=== PATIENT | female | born 1975 | race Caucasian/White ===

== ENCOUNTER 2022-05-17 13:04 | Inpatient (IN) | payer OTHER ==
[~2022-05-17] VITALS: Ht 167.6 cm; Wt 92.2 kg
[~2022-05-17 13:04] MED LIST: COLACE100 MG PO; IMITREX SQ6 MG/0.5 M PO; LINZESS290 MCG PO; MELATONIN10 MG PO; NORCO 5-325 TA1 EACH PO; PROBIOTIC1 EAC1 PO; WELLBUTRIN XL300 MG PO
[2022-05-17 14:05] LABS: BASOPHIL 0.5 % (0-2); EOSINOPHIL 0.7 % (0-5); HCT 41.5 % (37.0-47.0); HGB 13.6 g/dl (12.5-16.0); LYMPHOCYTE 15.2 % (15-48); MCH 29.8 pg (25.0-31.0); MCHC 32.8 g/dL (32.0-36.0); MONOCYTE 7.4 % (0-12); MPV 11.7 fL (6.0-9.5); NEUTROPHIL 75.9 % (41-80); NRBC 0; PLT 183 K/uL (150-400); RBC 4.56 M/uL (4.20-5.40); RDW 14.2 % (11.5-14.0); WBC 8.8 K/uL (4.0-10.5)
[2022-05-17 14:17] LABS: BILIRUBIN 1+ mg/dL (NEGATIVE); BLOOD NEGATIVE Ery/uL (NEGATIVE); CLARITY CLEAR (CLEAR); COLOR YELLOW (YELLOW); GLUCOSE (U) NORMAL (NORMAL); LEUKOCYTES TRACE Leu/uL (NEGATIVE); NITRITE NEGATIVE (NEGATIVE); PROTEIN TRACE (LOW) mg/dL (NEGATIVE); UROBILINOGEN >=8.0 mg/dL (0.2-1.0); pH 7.5 (5.0-9.0)
[2022-05-17 14:29] LABS: BACTERIA 1+; SQUAMOUS EPITHELIAL CELLS 20-50; URINARY RBC RARE
[2022-05-17 14:42] LABS: ALBUMIN 3.1 g/dL (3.4-5.0); BUN/CREAT RATIO (CALC) 14.5 RATIO; CREATININE 0.62 mg/dL (0.51-0.95); GLOBULIN (CALCULATION) 3.5 g/dL; MAGNESIUM 1.9 mg/dL (1.8-2.4); POTASSIUM 3.9 mmol/L (3.5-5.1); TOTAL PROTEIN 6.6 g/dL (6.4-8.2)
[2022-05-17 14:56] LABS: LACTIC ACID 0.7 mmol/L (0.4-1.9)
[2022-05-17 19:22] LABS: HCG (URINE) SCREEN NEGATIVE (NEGATIVE)
[2022-05-18 10:12] LABS: BASOPHIL 0.3 % (0-2); EOSINOPHIL 0.7 % (0-5); HCT 42.5 % (37.0-47.0); HGB 13.5 g/dl (12.5-16.0); LYMPHOCYTE 15.6 % (15-48); MCH 29.4 pg (25.0-31.0); MCHC 31.8 g/dL (32.0-36.0); MCV 92.6 fL (78.0-100.0); MONOCYTE 8.7 % (0-12); MPV 11.3 fL (6.0-9.5); NEUTROPHIL 74.4 % (41-80); NRBC 0; PLT 196 K/uL (150-400); RBC 4.59 M/uL (4.20-5.40); WBC 9.2 K/uL (4.0-10.5)
[2022-05-18 10:30] LABS: BUN/CREAT RATIO (CALC) 7.6 RATIO; CREATININE 0.66 mg/dL (0.51-0.95); POTASSIUM 4.1 mmol/L (3.5-5.1)
[2022-05-20 06:23] LABS: BASOPHIL 0.4 % (0-2); EOSINOPHIL 1.7 % (0-5); HGB 12.7 g/dl (12.5-16.0); LYMPHOCYTE 19.1 % (15-48); MCHC 32.6 g/dL (32.0-36.0); MONOCYTE 9.1 % (0-12); MPV 11.3 fL (6.0-9.5); NEUTROPHIL 69.2 % (41-80); NRBC 0; PLT 204 K/uL (150-400); RBC 4.24 M/uL (4.20-5.40); RDW 13.9 % (11.5-14.0); WBC 8.1 K/uL (4.0-10.5)
[2022-05-20 06:40] LABS: INR 1.11 (0.9-1.2); PTT 35.1 SECONDS (24.9-34.6)
[2022-05-20] MEDS ORDERED: CULTURELLE1 EACH PO (13:47)
[2022-05-20] MEDS ORDERED: LEVAQUIN750 MG PO (13:47)
[2022-05-20] MEDS ORDERED: METRONIDAZOLE500 MG PO (13:47)
[2022-05-20] MEDS ORDERED: PERCOCET 5-3251 EACH PO (13:47)
[2022-05-20] MEDS ORDERED: MIRALAX17 GM PO (13:47)
== END 2022-05-20 17:00 | disposition home or self-care (01) | DRG 373 ==
LOC: FER 13:04 → FMS 15:24 → FER 15:56 → FMS 15:56 → FER 16:17 → FMS 19:18
PROVIDERS: Emergency Medicine; ADMIT Surgery
DX: K35.33 Acute appendicitis with perforation, localized peritonitis, and gangrene, with abscess (principal); G43.909 Migraine, unspecified, not intractable, without status migrainosus; Z20.822 Contact with and (suspected) exposure to COVID-19; N20.0 Calculus of kidney; Z79.899 Other long term (current) drug therapy; Z98.890 Other specified postprocedural states
CPT/HCPCS: 36415; 80048; 80053; 81001; 83605; 83735; 84145; 84703; 85025; 85610; 85730; J2405; J2543; J3480; J7030; Q9967; U0002

== ENCOUNTER 2022-06-05 12:02 | Day surgery (SDC) | payer OTHER ==
[~2022-06-05] VITALS: Ht 167.6 cm; Wt 93.6 kg
[~2022-06-05 12:02] MED LIST changes: +CULTURELLE1 EACH PO; +LEVAQUIN750 MG PO; +METRONIDAZOLE500 MG PO; +MIRALAX17 GM PO; +PANTOPRAZOLE SO40 MG PO; +PERCOCET 5-3251 EACH PO
[2022-06-05 12:21] LABS: HCG (URINE) SCREEN NEGATIVE (NEGATIVE)
[2022-06-06 10:32] LABS: BASOPHIL 0.2 % (0-2); EOSINOPHIL 0.3 % (0-5); HCT 38.9 % (37.0-47.0); HGB 12.4 g/dl (12.5-16.0); LYMPHOCYTE 21.9 % (15-48); MCH 29.3 pg (25.0-31.0); MCHC 31.9 g/dL (32.0-36.0); MONOCYTE 7.9 % (0-12); MPV 11.2 fL (6.0-9.5); NEUTROPHIL 69.3 % (41-80); NRBC 0; PLT 235 K/uL (150-400); RBC 4.23 M/uL (4.20-5.40); RDW 13.6 % (11.5-14.0); WBC 10.7 K/uL (4.0-10.5)
[2022-06-07] MEDS ORDERED: METRONIDAZOLE500 MG PO (14:00)
[2022-06-07] MEDS ORDERED: PERCOCET 5-3251 EACH PO (14:00)
[2022-06-07] MEDS ORDERED: LEVAQUIN750 MG PO (14:00)
== END 2022-06-07 15:56 | disposition home or self-care (01) ==
LOC: FAS 12:02 → FMS 15:23 → FAS 06-07 15:56
PROVIDERS: Surgery
DX: K36 Other appendicitis (principal); K38.2 Diverticulum of appendix; K21.9 Gastro-esophageal reflux disease without esophagitis; E78.5 Hyperlipidemia, unspecified; F41.9 Anxiety disorder, unspecified; F32.A Depression, unspecified; Z79.899 Other long term (current) drug therapy
CPT/HCPCS: 36415; 84703; 85025; 87088; J0694; J1100; J1170; J1885; J2001; J2250; J2405; J2704; J3010; J7120